=== PATIENT | female | born 1950 | race Caucasian/White ===

== ENCOUNTER 2017-09-19 13:13 | Emergency (ER) | payer MEDICARE, OTHER ==
[2017-09-19] MEDS: ACETAMINOPHEN 500 MG TAB PO (15:47)
[2017-09-19] MEDS: IBUPROFEN 200 MG TAB PO (15:47)
== END 2017-09-19 16:44 | disposition home or self-care (01) ==
LOC: FTE 13:13
DX: S40.021A Contusion of right upper arm, initial encounter (principal); W19.XXXA Unspecified fall, initial encounter; Y92.9 Unspecified place or not applicable
CPT/HCPCS: 72050; 73060-RT; 99284-25

== ENCOUNTER 2018-09-11 10:12 | Day surgery (SDC) | payer MEDICARE, OTHER ==
[2018-09-11] MEDS ORDERED: FENTAnyl 50 MCG/ML VIAL (12:56)
== END 2018-09-11 15:09 | disposition home or self-care (01) ==
LOC: GIL 10:12
DX: Z12.11 Encounter for screening for malignant neoplasm of colon (principal); K64.4 Residual hemorrhoidal skin tags; K55.8 Other vascular disorders of intestine; I85.10 Secondary esophageal varices without bleeding; K31.811 Angiodysplasia of stomach and duodenum with bleeding
CPT/HCPCS: 43235